=== PATIENT | male | born 1950 | race Caucasian/White ===

== ENCOUNTER 2017-05-01 12:50 | Emergency (ER) | payer BC, MEDICARE ==
[~2017-05-01] VITALS: Ht 185.4 cm; Wt 128.0 kg
[~2017-05-01 12:50] MED LIST: ASPI1TAB69 PO; CANA1TAB6 PO; HYDR12.57 PO; METO1TAB42 PO; OMEGCAP PO
[2017-05-01 12:54] VITALS: BP 140/71; PULSE 82; RESP 18; TEMP 97.6; O2SAT 96
[2017-05-01] MEDS ORDERED: ASPI-516 CHEW (13:05)
--- NOTE | 2017-05-01 13:27 | PD ---
HPI Chief Complaint: Musculoskeletal Complaint Time Seen by Provider: 13:15 Travel History International Travel<30 days: No Contact w/Intl Traveler<30days: No Traveled to known affect area: No History of Present Illness HPI Patient comes to the emergency department complaining of left hip pain ongoing for approximately a month. Patient denies any known injury, fevers, loss change in bowel or bladder, or history of IV drug use. Patient describes pain as a inflammatory sensation that radiates down his leg into his back. Patient reports applying heat to the last night with no improvement of symptoms. Pain is worse with walking. Patient is concerned as his mother from cancer started with pain in her hip. Reports his blood sugars run 140-150. PFSH Past Medical History Diabetes: Yes Patient Takes Glucophage: Yes Hypertension: Yes Past Surgical History Other Surgery: Yes (VEIN SURGERY, LEGS) Social History Alcohol Use: No Tobacco Use: No Substance Use: No Allergies-Medications (Allergen,Severity, Reaction): Coded Allergies: Penicillins (Verified Allergy, Intermediate, RASH, 05/01/17) Reported Meds & Prescriptions Reported Meds & Active Scripts Active Prednisone 20 Mg Tab 20 Mg PO DAILY 5 Days Reported Aspirin 81 Mg Chew 81 Mg CHEW DAILY Invokamet Xr (Canagliflozin-Metformin ER 24 HR) 50-1,000 mg Tab 1 Tab PO DAILY [place]-3 Fish Oil/Vitamin (Fish Oil-Cholecalciferol) 1,000-1,000 Mg Cap 1 Cap PO DAILY Metoprolol Succinate ER 24 HR (Metoprolol Succinate) 25 Mg Tab 25 Mg PO DAILY Hydrochlorothiazide 12.5 Mg Cap 12.5 Mg PO DAILY Review of Systems Except as stated in HPI: all other systems reviewed are Neg Physical Exam Narrative GENERAL: Well-developed, overly nourished, in no acute distress, and non-ill appearing. SKIN: Focused skin assessment warm and dry. HEAD: Atraumatic. Normocephalic. EYES: Pupils equal and round. EOMI. No scleral icterus. No injection or drainage. ENT: No nasal bleeding or discharge. Mucous membranes pink and moist. NECK: Trachea midline. Supple. No nuclear rigidity. CARDIOVASCULAR: Dorsal pulses 2+, intact, and equal bilaterally RESPIRATORY: No accessory muscle use. No respiratory distress. MUSCULOSKELETAL: No obvious deformities. No clubbing. No cyanosis. No edema. Full range of motion. Hip: FROM and equal BL with passive flexion, extension, Abduction, Adduction, and internal/external rotation. Pulses equal BL distal to injury. Capillary refill less than 2 seconds distal to injury and equal BL. FROM distal to injury and equal BL. Strength distal to injury equal BL. NV intact distal to injury and equal BL. Plantar flexion and dorsal flexion equal BL. Dorsal pulses equal BL. Sensation equal BL 1st web space. Patient reports point tenderness over left hip that is worse with passive movement. No crepitus. NEUROLOGICAL: Awake and alert. No obvious cranial nerve deficits. Motor grossly within normal limits. Normal speech. PSYCHIATRIC: Appropriate mood and affect; insight and judgment normal. Data Data Last Documented VS Vital Signs Date Time Temp Pulse Resp B/P (MAP) Pulse Ox O2 Delivery O2 Flow Rate FiO2 05/01/17 12:54 97.6 82 18 140/71 (94) 96 Orders Orders Hip, Uni(Ap&Lat) W Ap Pelvis (05/01/17 ) Ed Discharge Order (05/01/17 14:55) MDM Medical Decision Making Medical Screen Exam Complete: Yes Emergency Medical Condition: Yes Interpretation(s) Last Impressions Hip and Pelvis X-Ray 05/01/17 0000 Signed Impressions: Service Date/Time: Monday, May 01, 2017 13:52 - CONCLUSION: 1. Mild degenerative changes are noted within the lower lumbar spine and bilateral hips. 2. No acute fracture or dislocation. Ben Mittal MD Differential Diagnosis Fracture, strain, dislocation, sciatica, muscle skeletal pain, arthritis Narrative Course There was no history of recent fall or trauma. There was no evidence to support genitourinary etiology. There is also no evidence to suggest vascular pathology such as AAA dissection. No fevers or other evidence to suspect infectious processes, abscess, osteomyelitis etc. The patients neurological exam is normal with normal motor and sensory. There is no saddle paresthesias reported and no bowel or bladder incontinence or retention. I suspect the pain is mechanical in nature with sciatica. X-ray was negative for any acute findings. Clinical suspicion, plan of care and management was discussed with the patient. The patient was instructed to follow up with their health care provider. The patient was also instructed to return if the pain worsened, changed, or developed weakness or bowel or bladder trouble. The patient agreed with plan. Patient in no obvious distress upon re-evaluation. All pertinent Radiology result(s) discussed with patient. Patient was asked if they wanted to speak to my attending, which the patient did not wish to do at this time. Any questions/ concerns in reference to patient diagnosis/condition discussed and clarified prior to patient's discharge. Reinforced sheer importance of close follow up with patient's primary physician or primary care clinic and/or orthopedic. Instructed patient to return to ED immediately, if symptoms return/worsen. Patient showed understanding of above instructions. Further instructions and recommendations were detailed in discharge paperwork. Patient ambulated without difficulty out of ED at discharge. Diagnosis Primary Impression: Sciatica Qualified Codes: M54.32 - Sciatica, left side Referrals: Jona Weber MD Patient Instructions: General Instructions, Sciatica (ED) Additional Instructions: Follow-up with your primary care physician and/or orthopedic in 3-5 days for reevaluation. Take all medication as prescribed. Monitor blood sugars closely while on steroids. Discontinue steroid use if sugars go above 300. Use over- the-counter Tylenol as needed for additional pain control. Follow instructions on the packaging. Return to the emergency department if symptoms get worse. Med/Other Pt SpecificInfo: Prescription(s) given Scripts Prednisone (Prednisone) 20 Mg Tab 20 MG PO DAILY for 5 Days, #5 TAB 0 Refills Prov: Vinnie Mcneill MD 05/01/17 Disposition: 01 DISCHARGE HOME Condition: Stable Abraham Mckeon May 01, 2017 13:27
--- NOTE | 2017-05-01 14:40 | RADRPT ---
EXAM DATE/TIME: 05/01/2017 13:52 [facility] COMPARISON: No previous studies available for comparison. INDICATIONS : Chronic left hip pain x 1 month with no known injury. MEDICAL HISTORY : Hypertension. SURGICAL HISTORY : Right shoulder. Right ACL. ENCOUNTER: Initial ACUITY: 1 month PAIN SCORE: 8/10 LOCATION: Right hip FINDINGS: Mild degenerative changes are noted within the lower lumbar spine and bilateral hips. There is no acu te fracture or dislocation. CONCLUSION: 1. Mild degenerative changes are noted within the lower lumbar spine and bilateral hips. 2. No acute fracture or dislocation. Ben Mittal MD on May 01, 2017 at 14:38 Board Certified Radiologist. This report was verified electronically.
[2017-05-01] MEDS ORDERED: PRED20 PO (14:52)
== END 2017-05-01 15:00 | disposition home or self-care (01) ==
LOC: PHEFT 12:50
DX: M54.32 Sciatica, left side (principal); E11.9 Type 2 diabetes mellitus without complications; I10 Essential (primary) hypertension; Z88.0 Allergy status to penicillin
CPT/HCPCS: 73502; 99283